=== PATIENT | female | born 1960 | race Caucasian/White ===

== ENCOUNTER 2019-01-23 07:01 | Day surgery (SDC) | payer OTHER ==
[2019-01-21 09:52] VITALS: BMI 22.6
[2019-01-23] MEDS ORDERED: MIDAZOLAM HCL 2 MG/2 ML SINGLE DOSE VIAL ONE (08:48)
[2019-01-23] MEDS ORDERED: ONDANSETRON 4 MG/2 ML VIAL ONE (09:39)
[2019-01-23] MEDS ORDERED: ceFAZolin SODIUM 1 GM VIAL ONE (09:39)
[2019-01-23] MEDS ORDERED: DEXAMETHASONE SOD PHOSPHATE 4 MG/1 ML VIAL ONE (09:39)
[2019-01-23] MEDS ORDERED: KETOROLAC TROMETHAMINE 30 MG/1 ML VIAL ONE (09:39)
[2019-01-23] MEDS ORDERED: oxyCODONE HCL 5 MG TABLET PO PRN ×2 (10:36)
[2019-01-23] MEDS ORDERED: ONDANSETRON 4 MG/2 ML VIAL IVPUSH PRN (10:36)
[2019-01-23] MEDS ORDERED: LACTATED RINGERS SOLUTION 1,000 ML IV SCH (10:45)
[2019-01-23 10:52] VITALS: TEMP 97.6
--- NOTE | 2019-01-23 12:10 | OP ---
DATE OF OPERATION: 01/23/2019 Done at [facility]. SURGEON: Roberto Mi MD SKY DIVER: PAUL Paez PREOPERATIVE DIAGNOSES: 1. Right shoulder rotator cuff tear. 2. Right shoulder adhesive capsulitis. 3. Right shoulder impingement syndrome. 4. Right shoulder acromioclavicular joint defect. 5. Right shoulder superior, anterior, posterior synovitis. POSTOPERATIVE DIAGNOSES: 1. Right shoulder rotator cuff tear. 2. Right shoulder adhesive capsulitis. 3. Right shoulder impingement syndrome. 4. Right shoulder acromioclavicular joint defect. 5. Right shoulder superior, anterior, posterior synovitis. PROCEDURE: 1. Right shoulder arthroscopy with arthroscopic rotator cuff repair (CPT code 16662). 2. Right shoulder arthroscopy with lysis and resection of adhesions (CPT code 63755). 3. Right shoulder arthroscopy with subacromial decompression (CPT code 69753). 4. Right shoulder arthroscopy with resection of distal clavicle, acromioclavicular joint (CPT code 99917). 5. Right shoulder arthroscopy with debridement (CPT code 191993. FINDINGS: 1. Glenohumeral synovitis. 2. Glenohumeral adhesions. 3. Partial biceps tear, 10%. 4. Partial rotator cuff tear, anterior supraspinatus, 15%. 5. [id number] tear, supraspinatus/infraspinatus junction, seen on the acromial surface. 6. Type 2 acromion with anterior spurring. 7. Inferior spur, distal clavicle, with acromioclavicular joint disease. 8. Thickened scar tissue most predominant between the subacromial space with severe adhesions. 9. Post manipulation range of motion premanipulation elevation . REPAIR TYPE: Two [id number] sutures were placed between the supraspinatus and infraspinatus along the junction on the acromial surface using [id number] repair. PROCEDURE: Informed consent was obtained. The patient was taken to the operating room, where the upper extremity was prepped and draped in a sterile fashion. The shoulder was manipulated for a full range of motion. A posterior incision portal was made and directed to the glenohumeral joint. Under direct visualization, an anterior incision and portal was made. Extensive synovitis as well as chondral injuries throughout the glenohumeral joint were debrided and removed. Any identified labral injuries, including the superior labral tear, anterior and posterior, and anterior labrum torn portions, were removed as well. The rotator cuff was visualized and noted to have a full-thickness tear. The edges were debrided. The posterior incision portal was redirected to the subacromial space where a lateral incision portal was made. Excessive and thickened scar tissue noted throughout the subacromial space, including bursal and scar tissue, were removed. The type 2 acromion was converted into a flattened type 1 using a bur for subacromial decompression. The distal inferior spur at the distal clavicle was also debrided with the use of an accessory portal in the acromioclavicular joint. The edges of the rotator cuff were identified. Sutures were placed into the rotator cuff and secured through the greater tuberosity. Prior to securing, a bleeding bed was made using a small bur, creating a bleeding surface of the rotator cuff insertion. The shoulder was then drained, a single suture was placed in all portals, a sterile dressing was placed and the patient was transferred to the recovery room without complication. The PA listed above was present and assisted at surgery. Their presence was absolutely medically necessary for the completion of the procedure. They helped hold the arthroscope, pass instruments (and implants when indicated) and the procedure could not have been completed without their assistance. ADDENDUM: Please note that no anchors were placed. A [id number]-pr-xhce repair was performed putting sutures between the supraspinatus and infraspinatus. No anchors were used. ROBERTO MI M.D. [id number]
[2019-01-23 13:09] VITALS: BP 95/61; PULSE 76
== END 2019-01-23 12:50 | disposition home or self-care (01) ==
LOC: FASU 07:01
PROVIDERS: ATTEND Orthopaedic Surgery
PROC: 0RNJ4ZZ Release Right Shoulder Joint, Percutaneous Endoscopic Approach (ICD-10-PCS; 2019-01-23)
PROC: 0RBJ4ZZ Excision of Right Shoulder Joint, Percutaneous Endoscopic Approach (ICD-10-PCS; 2019-01-23)
PROC: 0PB94ZZ Excision of Right Clavicle, Percutaneous Endoscopic Approach (ICD-10-PCS; 2019-01-23)
PROC: 0LQ14ZZ Repair Right Shoulder Tendon, Percutaneous Endoscopic Approach (ICD-10-PCS; principal; 2019-01-23 09:00)
DX: M75.111 Incomplete rotator cuff tear or rupture of right shoulder, not specified as traumatic (principal); M75.01 Adhesive capsulitis of right shoulder; M75.41 Impingement syndrome of right shoulder; M65.811 Other synovitis and tenosynovitis, right shoulder
CPT/HCPCS: 94760